=== PATIENT | female | born 1985 | race African-American/Black ===

== ENCOUNTER 2016-11-17 07:16 | Inpatient (IN) ==
[2016-11-17] MEDS: LACTATED RINGERS 1,000 ML IV SCH ×2 (07:48→19:00)
[2016-11-17] MEDS ORDERED: ONDANSETRON 4 MG/2 ML VIAL IV PRN (07:56)
[2016-11-17] MEDS ORDERED: OXYTOCIN/LR 20 UNIT/1,000 ML BAG IV SCH (08:00)
[2016-11-17 08:36] LABS: Basophils % 0.1 % (0.0-0.8); Eosinophils % 0.3 % (0.00-10.9); Hemoglobin 11.4 GM/DL (12.0-16.0); Immature Granulocytes % 0.5 %; Immature Granulocytes Absolute 0.04 #; Lymphocytes # 2.5 10*3/uL (1.4-4.0); Lymphocytes % 28.4 % (21.3-54.2); Mean Corpuscular HGB Conc 35.6 GM/DL (32-36); Mean Corpuscular Hemoglobin 29 PG (27-34); Mean Corpuscular Volume 82.5 FL (87-102); Monocytes # 0.7 10*3/uL (0.11-0.8); Monocytes % 7.8 % (1.7-12.7); Neutrophils # 5.6 10*3/uL (1.4-7.4); Neutrophils % 62.9 % (38.7-73.9); Platelet Count 204 T/CUMM (130-400); Red Blood Count 3.88 MC/CUMM (3.8-5.5); Red Cell Distribution Width 16.3 % (9.3-17.3); White Blood Count 8.8 T/CUMM (4-12)
[2016-11-17 09:07] LABS: Bilirubin,Total 0.5 MG/DL (0.2-1.0); Calcium 8.6 MG/DL (8.5-10.1); Osmolality,Calculated 272.5 MOS/KG (273-304); Total Protein 6.6 G/DL (6.4-8.3)
[2016-11-17] MEDS ORDERED: MEPERIDINE 50 MG/1 ML VIAL IV PRN (09:52)
[2016-11-17] MEDS ORDERED: DINOPROSTONE VAG GEL 10 MG SYRINGE VAG ONE ×2 (10:01→10:06)
--- NOTE | 2016-11-17 13:28 | OB/GYN History & Physical ---
History of Present Illness Chief complaint: For elective induction of labor due to term History of present illness: Ms. Mireles is a 31 year old female who is a 2 para 1 living 1 who presents to the labor department for elective induction of labor due to term . The risk and benefits have thoroughly discussed with patient significant other plan of care has been discussed with Dr. Delgado and all parties are in agreement plan. The patient began her care at the [facility] and she received routine care care. Her course was complicated by an incompetent cervix. The patient did have a cervical cerclage placed. Otherwise she has had an uneventful . The patient had a previous vaginal delivery of a liveborn infant that weighed 6 pounds and 9 ounces. labs: She is O+, RPR is nonreactive, hepatitis B negative, HIV negative, GC chlamydia cultures negative, rubella is immune, Pap smear is within normal limits. GBS culture is negative. And review of systems negative with exception of above. Home Medications Medication Instructions Recorded Confirmed Type Ferrous Sulfate [Iron] 325 mg PO DAILY 11/16/16 11/17/16 History Vit No.130/Iron/Folic 1 each PO DAILY 11/16/16 11/17/16 History [ Vitamins] Allergies Allergy/AdvReac Type Severity Reaction Status Date / Time No Known Allergies Allergy Verified 10/03/16 17:10 12 point system: reviewed and no additional remarkable complaints except as stated Medical,Surgical,& Family Hx - Medical History Cardio: History of: Hypertension (PAST HX. PT NOT TAKING ANY MEDICATIONS.) Psychological: History of: Anxiety Disorders (PAST HX), Depression (?) Neurology: No history of: Seizures HEENT: History of: Eye Problem (GLASSES) Respiratory: History of: Bronchitis (PAST HX 2012) Gastrointestinal: History of: GERD, GI Problems (excessive nausea, some vomiting with pregnacy; lost 10 pounds last few week) Hematology: History of: Anemia (PAST HX), Sickle Cell Disease (SICKLE CELL TRAIT ) Reproductive: History of: Ovarian Cysts (RT OVARIAN CYST), Sexually Transmitted Disorders (Chlamydia) No history of: Ectopic , Complication Other: No history of: Anesthesia Reactions - Surgical History Abdominal Surgeries: Surgical HX of: Colonoscopy, EGD Reproductive Surgeries: Surgical HX of;: Gynecologic Surgery (CERVICAL CERLAGE 2005. 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 General appearance: no acute distress - Antepartum / Post Antepartum Exam Cervix - Dilatation: 2 centimeters Effacement: 60% Station: -2 Rupture: Intact Presentation: Vertex Heart Rate: 130s-140s Breast: bilateral: normal Abdomen obstetrics: Present: bowel sounds normal Vagina: Present: normal moisture Uterus exam: Present: enlarged Anus/Rectum: Present: normal perianal skin - Respiratory Respiratory exam: Present: clear to auscultation bilaterally - Cardiovascular Cardiovascular exam: Present: regular rate and rhythm - GI/Abdominal GI/Abdominal exam: Present: normal bowel sounds, soft - Extremities Exam Extremities exam: Present: normal inspection - Neurological Exam Neurological exam: Present: alert, oriented X3 - Psychiatric Psychiatric exam: Present: normal affect, normal mood - Skin Skin exam: Present: normal color, warm Assessment and Plan (1) Term Status: Acute Assessment and plan: Admit IV fluids cervical cerclage removal Prostin gel per protocol IV Pitocin per protocol of indicated Artificial rupture membranes when appropriate Internal monitors if indicated Anticipate Current Visit: Yes (2) Cervical cerclage suture present in third trimester Status: Acute Assessment and plan: Remove of cerclage Current Visit: Yes Results - Labs CBC & BMP: 11/17/16 08:30 11/17/16 08:30 Quality Measures - VTE Contraindication to Pharmacological VTE Prophylaxis: Continuous Epidural Infusion
[2016-11-17] MEDS ORDERED: diphenhydrAMINE 50 MG/1 ML VIAL IV PRN ×2 (13:35)
[2016-11-17] MEDS ORDERED: ONDANSETRON 4 MG/2 ML VIAL IV ONE (13:35)
[2016-11-17] MEDS ORDERED: hydrOXYzine HCL 25 MG/1 ML VIAL IM PRN (13:35)
[2016-11-17] MEDS ORDERED: FAMOTIDINE 20 MG/2 ML VIAL IV ONE (13:35)
[2016-11-17] MEDS ORDERED: fentaNYL 2 MCG/ROPIV 0.2% EPID 150 ML EPIDURAL SCH (13:35)
[2016-11-17] MEDS ORDERED: CITRIC ACID/SODIUM CITRATE 30 ML UDCUP PO ONE (13:35)
[2016-11-17] MEDS ORDERED: ePHEDrine 50 MG/ML AMP IV PRN (13:35)
[2016-11-17] MEDS ORDERED: PROMETHAZINE 25 MG/1 ML VIAL IM ONE (13:35)
--- NOTE | 2016-11-17 14:15 | Event Note ---
953: Cervical cerclage removed without difficulty. The patient tolerated the procedure well.
[2016-11-17 16:26] LABS: Apearance,Urine CLEAR (Clear); Bacteria,Urine Occasional /HPF (Few); Bilirubin,Urine Negative (Negative); Blood, Urine Negative (Negative); Glucose,Urine (UA) Negative (Negative); Ketones,Urine 5 mg/dL (Negative); Mucus,Urine Occasional /LPF (Occasional); Nitrite,Urine Negative (Negative); Protein,Urine Negative; RBC,Urine 1 /HPF (0-4); Urine Color Yellow (Yellow); Urine Specific Gravity 1.009 (1.001-1.035); Urine Urobilinogen < 2.0 EU/DL (0.2-1.0); WBC,Urine <1 /HPF (0-6)
[2016-11-18] MEDS: LACTATED RINGERS 1,000 ML IV SCH (01:25)
[2016-11-18] MEDS ORDERED: miSOPROStol 200 MCG TABLET ONE (09:32)
[2016-11-18] MEDS ORDERED: BISACODYL 10 MG SUPP RECTAL PRN (10:09)
[2016-11-18] MEDS ORDERED: RHO(D) IMMUNE GLOBULIN 300 MCG SYRINGE IM ONE (10:09)
[2016-11-18] MEDS ORDERED: oxyCODONE/ACETAMINOPHEN 5-325 MG TABLET PO PRN (10:09)
[2016-11-18] MEDS ORDERED: WITCH HAZEL PADS 100/JAR TOP PRN (10:09)
[2016-11-18] MEDS ORDERED: BENZOCAINE 20%/MENTHOL 0.5% SPRAY 56 GM CAN TOP PRN (10:09)
[2016-11-18] MEDS ORDERED: MEASLES/MUMPS/RUBELLA VACCINE 0.5 ML VIAL SUBCUT ONE (10:09)
[2016-11-18] MEDS ORDERED: OXYTOCIN/LR 20 UNIT/1,000 ML BAG IV ONE (10:09)
[2016-11-18] MEDS ORDERED: LANOLIN 50% CREAM 0.3 OZ TUBE TOP PRN (10:09)
[2016-11-18] MEDS ORDERED: HYDROCORTISONE 2.5% RECTAL CREAM 30 GM TUBE TOP PRN (10:09)
[2016-11-18] MEDS ORDERED: DIPH/TET/ACEL PERT BOOSTER VACCINE 0.5 ML VIAL IM ONE (10:09)
[2016-11-18] MEDS ORDERED: ACETAMINOPHEN 325 MG TABLET PO PRN (10:09)
--- NOTE | 2016-11-18 10:09 | Event Note ---
HPI: Ms. Mireles is a 31-year-old female who presented to the labor department for elective induction of labor due to term . The risk and benefits were thoroughly discussed with the patient and significant other, and plan of care was discussed with Dr. Delgado and all parties were in agreement with plan. Stage I: The patient also had a history of a cerclage and that cerclage was removed and then Prostin gel per protocol was inserted. The patient progressed in labor slowly but maintain a CAT 1 tracing. She was eventually started on IV Pitocin per protocol. The patient experienced spontaneous rupture membranes with clear fluid noted. Internal monitors were inserted. She received an epidural for pain control. She had an uneventful course of labor. Stage II: The patient was complete and complained of pressure and desire to push. She pushed for approximately 3 minutes after which time the 's head was delivered. The mouth and nose were suctioned on the perineum. The remainder of the infant was delivered @ 947, a viable male was noted. Apgars were 9 at 1 minute and 9 at 5 minutes. weight was 6 lbs. 7 oz. A cord pH was obtained and sent to the lab. The infant was placed on the mom's abdomen for skin to skin bonding. Stage III: Spontaneous delivery of a Lopez placenta with a three-vessel cord noted. The placenta was further examined appeared to be grossly intact. The vagina cervix was inspected with no tears or lacerations noted. Estimated blood loss was approximately 150 cc. At the time of dictation mother and baby are in stable condition.
[2016-11-18] MEDS ORDERED: ACETAMINOPHEN/CODEINE 300-30 MG TABLET PO PRN (10:12)
[2016-11-18 10:19] LABS: Cord Arterial Blood HCO3 18.4 MMOL/L
[2016-11-18] MEDS: IBUPROFEN 800 MG TABLET PO PRN ×2 (11:25→19:55)
[2016-11-18] MEDS: oxyCODONE/ACETAMINOPHEN 5-325 MG TABLET PO PRN ×2 (11:55→19:55)
--- NOTE | 2016-11-18 11:55 | Anesthesia Post-Op ---
Anesthesia Post OP - Post Ansesthetic Evaluation Patient seen in post op: Yes Resp: within normal limits CV: within normal limits Mental: within normal limits Temp: within normal limits [id number]: within normal limits Nausea and Vomiting: within normal limits Pain: within normal limits
[2016-11-18] MEDS: DOCUSATE SODIUM 100 MG CAPSULE PO SCH (21:59)
[2016-11-19 04:55] LABS: Basophils % 0.2 % (0.0-0.8); Eosinophils # 0.1 10*3/uL (0.0-0.87); Eosinophils % 0.8 % (0.00-10.9); Hematocrit 31.6 VOL% (35.7-47.0); Hemoglobin 10.4 GM/DL (12.0-16.0); Immature Granulocytes % 0.3 %; Immature Granulocytes Absolute 0.06 #; Lymphocytes # 3.6 10*3/uL (1.4-4.0); Lymphocytes % 20.9 % (21.3-54.2); Mean Corpuscular HGB Conc 32.9 GM/DL (32-36); Mean Corpuscular Hemoglobin 28 PG (27-34); Mean Corpuscular Volume 84.7 FL (87-102); Mean Platelet Volume 10.9 FL (9.6-12.0); Monocytes # 1.2 10*3/uL (0.11-0.8); Monocytes % 6.9 % (1.7-12.7); Neutrophils # 12.2 10*3/uL (1.4-7.4); Neutrophils % 70.9 % (38.7-73.9); Platelet Count 161 T/CUMM (130-400); Red Blood Count 3.73 MC/CUMM (3.8-5.5); Red Cell Distribution Width 16.5 % (9.3-17.3); White Blood Count 17.2 T/CUMM (4-12)
[2016-11-19 05:26] LABS: Eosinophils 2 % (0-10); Lymphocytes 15 % (20-55); Platelet Estimate Normal; Segmented Neutrophils 77 % (50-85); Total Cells Counted 100
[2016-11-19 05:27] LABS: Hypochromasia 1+
[2016-11-19] MEDS: DOCUSATE SODIUM 100 MG CAPSULE PO SCH ×2 (09:27→20:17)
--- NOTE | 2016-11-19 10:06 | OB/GYN Progress Note ---
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 Bonding well with . Exam FAMILY LIFE COUNSELOR - Constitutional Vitals: Vital Signs Temp Pulse Resp BP Pulse Ox 11/19/16 07:49 97.1 F L 63 20 110/62 98 11/19/16 05:26 18 11/19/16 04:00 97.4 F L 71 18 121/67 96 11/19/16 00:00 97.2 F L 73 18 112/64 97 11/18/16 20:00 98.7 F 89 18 127/70 97 11/18/16 15:39 97.6 F 82 20 128/72 98 11/18/16 14:40 86 20 129/75 98 11/18/16 13:40 79 20 129/74 98 11/18/16 12:40 80 20 137/76 99 11/18/16 12:10 76 20 143/70 99 11/18/16 11:40 97.7 F 85 20 120/61 98 General appearance: no acute distress - Antepartum / Post Post Exam Breast: bilateral: normal Abdomen obstetrics: Present: bowel sounds normal Vagina: Present: normal moisture, discharge (Light lochia rubra) Uterus exam: Present: enlarged Anus/Rectum: Present: normal perianal skin - Respiratory Respiratory exam: Present: clear to auscultation bilaterally - Cardiovascular Cardiovascular exam: Present: regular rate and rhythm - GI/Abdominal GI/Abdominal exam: Present: normal bowel sounds, soft - Extremities Exam Extremities exam: Present: normal inspection - Back Exam Back exam: Present: normal inspection - Neurological Exam Neurological exam: Present: alert, oriented X3 - Psychiatric Psychiatric exam: Present: normal affect, normal mood - Skin Skin exam: Present: normal color, warm Results - Labs CBC & BMP: 11/19/16 04:43 11/17/16 08:30
[2016-11-19] MEDS: IBUPROFEN 800 MG TABLET PO PRN (11:33)
[2016-11-19] MEDS: oxyCODONE/ACETAMINOPHEN 5-325 MG TABLET PO PRN (11:34)
[2016-11-20] MEDS: oxyCODONE/ACETAMINOPHEN 5-325 MG TABLET PO PRN ×2 (02:03→07:40)
[2016-11-20] MEDS: IBUPROFEN 800 MG TABLET PO PRN (07:40)
[2016-11-20 08:47] VITALS: BP 116/77
[2016-11-20] MEDS: DOCUSATE SODIUM 100 MG CAPSULE PO SCH ×2 (09:00→11:18)
--- NOTE | 2017-01-24 08:17 | Discharge Summary ---
DATE OF ADMISSION: 11/17/2016 DATE OF DISCHARGE: 11/20/2016 She was admitted for elective induction of labor. She progressed in labor, delivered a viable male . Apgars were 9 at 1 minute and 9 at 5 minutes. Placenta was delivered without any complications. Blood loss was minimal. She remained in the hospital for two days tolerated this hospitalization without any complications. instructions were thoroughly given and she was in full agreement. Nursery discharged the infant as well and mother and were stable at the time of discharge. GHADA
== END 2016-11-20 12:45 | disposition home or self-care (01) | DRG 560 ==
LOC: N.LD 07:16 → N.OB 11-18 11:08
PROVIDERS: ADMIT Obstetrics & Gynecology; ATTEND Obstetrics & Gynecology

== ENCOUNTER 2018-10-24 09:48 | Inpatient (IN) ==
[2018-10-24] MEDS ORDERED: CITRIC ACID/SODIUM CITRATE 30 ML UDCUP PO ONE (10:00)
[2018-10-24] MEDS ORDERED: FAMOTIDINE 20 MG/2 ML VIAL IV ONE (10:00)
[2018-10-24] MEDS ORDERED: ceFAZolin 3,000 MG in SYRINGE 1 EACH IV ONE (10:00)
[2018-10-24] MEDS ORDERED: DEXAMETHASONE 4 MG/1 ML VIAL ONE (10:03)
[2018-10-24] MEDS ORDERED: OXYTOCIN 10 UNIT/ML VIAL IM ONE (10:03)
[2018-10-24] MEDS ORDERED: BUPIVACAINE 0.5% 50 ML VIAL ONE (10:03)
[2018-10-24] MEDS ORDERED: OXYTOCIN/LR 30 UNIT/1,000 ML BAG IV ONE (10:04)
[2018-10-24 10:25] LABS: Basophils % 0.2 % (0.0-0.8); Eosinophils # 0.1 10*3/uL (0.0-0.87); Eosinophils % 0.9 % (0.00-10.9); Hematocrit 34.4 VOL% (35.7-47.0); Hemoglobin 10.9 GM/DL (12.0-16.0); Immature Granulocytes % 0.4 %; Immature Granulocytes Absolute 0.03 #; Lymphocytes # 2.3 10*3/uL (1.4-4.0); Lymphocytes % 28.4 % (21.3-54.2); Mean Corpuscular HGB Conc 31.7 GM/DL (32-36); Mean Corpuscular Volume 85.1 FL (87-102); Mean Platelet Volume 11.6 FL (9.6-12.0); Monocytes % 7.2 % (1.7-12.7); Neutrophils % 62.9 % (38.7-73.9); Platelet Count 173 T/CUMM (130-400); Red Blood Count 4.04 MC/CUMM (3.8-5.5); Red Cell Distribution Width 15.7 % (9.3-17.3); White Blood Count 8.2 T/CUMM (4-12)
[2018-10-24 10:44] LABS: Bilirubin,Total 0.4 MG/DL (0.2-1.0); Calcium 8.7 MG/DL (8.5-10.1); Osmolality,Calculated 278.3 MOS/KG (273-304); Total Protein 7.3 G/DL (6.4-8.3)
[2018-10-24 11:08] LABS: Cord Arterial Blood HCO3 19.7 MMOL/L
[2018-10-24 11:09] LABS: Cord Venous Blood HCO3 22.2 MMOL/L; Cord Venous Blood PCO2 44.1 MMHG; Cord Venous Blood PO2 42.4 MMHG
[2018-10-24 11:15] LABS: Cord Arterial Blood HCO3 20.3 MMOL/L
[2018-10-24 11:16] LABS: Cord Venous Blood HCO3 21.3 MMOL/L; Cord Venous Blood PCO2 41.6 MMHG; Cord Venous Blood PO2 42.8 MMHG
[2018-10-24] MEDS ORDERED: LACTATED RINGERS 1,000 ML IV ONE (11:53)
[2018-10-24] MEDS ORDERED: ONDANSETRON 4 MG/2 ML VIAL IV PRN (11:53)
[2018-10-24] MEDS ORDERED: fentaNYL 100 MCG/2 ML VIAL ONE (11:53)
[2018-10-24] MEDS ORDERED: MIDAZOLAM 2 MG/2 ML VIAL ONE (11:53)
[2018-10-24] MEDS ORDERED: PROPOFOL 200 MG/20 ML VIAL IV ONE (11:54)
[2018-10-24] MEDS ORDERED: SUCCINYLCHOLINE 200 MG/10 ML VIAL ONE (11:54)
[2018-10-24] MEDS ORDERED: ROCURONIUM 100 MG/10 ML VIAL IV ONE (11:54)
[2018-10-24] MEDS ORDERED: SEVOFLURANE 1 UNIT/15 MINUTE INH ONE (11:54)
[2018-10-24] MEDS ORDERED: LACTATED RINGERS 1,000 ML IV SCH (12:00)
[2018-10-24] MEDS ORDERED: KETOROLAC 30 MG/1 ML VIAL IV PRN (12:01)
[2018-10-24] MEDS ORDERED: ACETAMINOPHEN 500 MG TABLET PO PRN (12:02)
[2018-10-24] MEDS ORDERED: HYDROmorphone 2 MG/1 ML VIAL IV PRN (12:03)
[2018-10-24 12:31] LABS: Apearance,Urine CLEAR (Clear); Bilirubin,Urine Negative (Negative); Blood, Urine Negative (Negative); Glucose,Urine (UA) Negative (Negative); Ketones,Urine Negative (Negative); Nitrite,Urine Negative (Negative); Protein,Urine Negative; RBC,Urine 1 /HPF (0-4); Squamous Epithelial Cell,Urine Occasional /HPF (0-10); Urine Color Straw (Yellow); Urine Specific Gravity 1.003 (1.001-1.035); Urine Urobilinogen < 2.0 EU/DL (0.2-1.0)
[2018-10-24] MEDS ORDERED: ACETAMINOPHEN 325 MG TABLET PO PRN (13:18)
[2018-10-24] MEDS ORDERED: RHO(D) IMMUNE GLOBULIN 300 MCG SYRINGE IM ONE (13:18)
[2018-10-24] MEDS ORDERED: OXYTOCIN/LR 20 UNIT/1,000 ML BAG IV ONE (13:18)
[2018-10-24 18:11] LABS: Basophils % 0.1 % (0.0-0.8); Eosinophils # 0.5 10*3/uL (0.0-0.87); Eosinophils % 2.7 % (0.00-10.9); Hematocrit 37.5 VOL% (35.7-47.0); Hemoglobin 12.4 GM/DL (12.0-16.0); Immature Granulocytes % 0.4 %; Immature Granulocytes Absolute 0.06 #; Lymphocytes # 1.5 10*3/uL (1.4-4.0); Lymphocytes % 9.2 % (21.3-54.2); Mean Corpuscular HGB Conc 33.1 GM/DL (32-36); Mean Corpuscular Volume 82.6 FL (87-102); Mean Platelet Volume 13.1 FL (9.6-12.0); NRBC # 0.03 10*3/uL; Neutrophils % 85.6 % (38.7-73.9); Platelet Count 58 T/CUMM (130-400); Red Blood Count 4.54 MC/CUMM (3.8-5.5); Red Cell Distribution Width 15.4 % (9.3-17.3); White Blood Count 16.8 T/CUMM (4-12)
[2018-10-24] MEDS: ceFAZolin 1,000 MG in SYRINGE 1 EACH IV SCH (18:43)
[2018-10-24 19:15] LABS: Polychromasia Slight
[2018-10-24 19:16] LABS: Platelet Estimate Decreased
[2018-10-25] MEDS: ceFAZolin 1,000 MG in SYRINGE 1 EACH IV SCH (02:17)
[2018-10-25 04:28] LABS: Basophils % 0.1 % (0.0-0.8); Eosinophils % 0.1 % (0.00-10.9); Hemoglobin 9.2 GM/DL (12.0-16.0); Immature Granulocytes % 0.3 %; Immature Granulocytes Absolute 0.04 #; Lymphocytes # 2.9 10*3/uL (1.4-4.0); Lymphocytes % 21.1 % (21.3-54.2); Mean Corpuscular HGB Conc 32.9 GM/DL (32-36); Mean Corpuscular Volume 83.3 FL (87-102); Mean Platelet Volume 11.5 FL (9.6-12.0); Monocytes % 7.5 % (1.7-12.7); Neutrophils % 70.9 % (38.7-73.9); Platelet Count 170 T/CUMM (130-400); Red Blood Count 3.36 MC/CUMM (3.8-5.5); Red Cell Distribution Width 15.7 % (9.3-17.3); White Blood Count 13.8 T/CUMM (4-12)
[2018-10-25] MEDS: DOCUSATE SODIUM 100 MG CAPSULE PO SCH ×3 (04:52→21:57)
[2018-10-25] MEDS: MULTIVITAMIN (PRENATAL) TABLET PO SCH (09:52)
[2018-10-25] MEDS: SIMETHICONE CHEW 80 MG TABLET PO PRN ×2 (09:52→19:36)
[2018-10-25] MEDS: METOCLOPRAMIDE 10 MG TABLET PO SCH ×2 (09:52→16:54)
[2018-10-25] MEDS: MAGNESIUM HYDROXIDE SUSP 30 ML UDCUP PO PRN ×2 (09:53→21:57)
[2018-10-25] MEDS: IBUPROFEN 800 MG TABLET PO PRN (19:34)
[2018-10-26] MEDS: METOCLOPRAMIDE 10 MG TABLET PO SCH ×4 (00:19→23:55)
[2018-10-26] MEDS: MULTIVITAMIN (PRENATAL) TABLET PO SCH (08:40)
[2018-10-26] MEDS: DOCUSATE SODIUM 100 MG CAPSULE PO SCH ×2 (08:40→20:53)
[2018-10-26] MEDS: MAGNESIUM HYDROXIDE SUSP 30 ML UDCUP PO PRN (08:45)
[2018-10-26] MEDS ORDERED: MAGNESIUM CITRATE 300 ML BOTTLE PO PRN (18:11)
[2018-10-27] MEDS: IBUPROFEN 800 MG TABLET PO PRN (06:19)
[2018-10-27 08:38] VITALS: BP 129/69
[2018-10-27] MEDS: DOCUSATE SODIUM 100 MG CAPSULE PO SCH (09:06)
[2018-10-27] MEDS: MAGNESIUM HYDROXIDE SUSP 30 ML UDCUP PO PRN (09:06)
[2018-10-27] MEDS: METOCLOPRAMIDE 10 MG TABLET PO SCH (09:06)
[2018-10-27] MEDS: MULTIVITAMIN (PRENATAL) TABLET PO SCH (09:18)
== END 2018-10-27 14:30 | disposition home or self-care (01) | DRG 540 ==
LOC: N.LDOUT 09:48 → N.LD 09:50 → N.OB 14:50
PROVIDERS: ADMIT Obstetrics & Gynecology; ATTEND Obstetrics & Gynecology
PROC: LDCSECT (ICD-10-PCS; 2018-10-24 10:30)

== ENCOUNTER 2020-12-03 15:41 | Observation (INO) ==
[2020-12-03] MEDS ORDERED: PROMETHAZINE 25 MG/1 ML VIAL IM PRN (16:33)
[2020-12-03] MEDS ORDERED: MAGNESIUM SULF RIDER 4 GM/100 ML PREMIX IV PRN (16:33)
[2020-12-03] MEDS ORDERED: ACETAMINOPHEN 325 MG TABLET PO PRN (16:33)
[2020-12-03] MEDS ORDERED: ONDANSETRON 4 MG/2 ML VIAL IV PRN (16:33)
[2020-12-03] MEDS ORDERED: POTASSIUM CHLORIDE RIDER 10 MEQ/100 ML PREMIX IV PRN (16:33)
[2020-12-03] MEDS ORDERED: MAGNESIUM SULF RIDER 2 GM/50 ML PREMIX IV PRN (16:33)
[2020-12-03] MEDS ORDERED: hydrALAZINE 20 MG/1 ML VIAL IV PRN (16:37)
[2020-12-03] MEDS ORDERED: NITROGLYCERIN SL 0.4 MG TABLET SL PRN (16:37)
[2020-12-03] MEDS: PANTOPRAZOLE 40 MG TABLET PO SCH (17:01)
[2020-12-03 17:07] LABS: Basophils % 0.3 % (0.0-0.8); Eosinophils # 0.2 10*3/uL (0.0-0.87); Hematocrit 37.2 VOL% (35.7-47.0); Hemoglobin 11.7 GM/DL (12.0-16.0); Immature Granulocytes % 0.4 %; Immature Granulocytes Absolute 0.03 #; Lymphocytes # 3.2 10*3/uL (1.4-4.0); Lymphocytes % 42.2 % (21.3-54.2); Mean Corpuscular HGB Conc 31.5 GM/DL (32-36); Mean Corpuscular Volume 84.9 FL (87-102); Mean Platelet Volume 9.9 FL (9.6-12.0); Monocytes % 6.8 % (1.7-12.7); Neutrophils % 48.3 % (38.7-73.9); Platelet Count 259 T/CUMM (130-400); Red Blood Count 4.38 MC/CUMM (3.8-5.5); Red Cell Distribution Width 13.9 % (9.3-17.3); White Blood Count 7.5 T/CUMM (4-12)
[2020-12-03 17:16] LABS: Albumin 3.8 G/DL (3.4-5.0); Bilirubin,Total 0.6 MG/DL (0.2-1.0); Calcium 9.2 MG/DL (8.5-10.1); Osmolality,Calculated 271.7 MOS/KG (273-304); Total Protein 8.3 G/DL (6.4-8.2)
[2020-12-03 19:43] LABS: Bilirubin,Urine Negative (Negative); Blood, Urine Negative (Negative); Glucose,Urine (UA) Negative (Negative); Hyaline Casts,Urine 1 /LPF (0-3); Ketones,Urine Negative (Negative); Mucus,Urine Occasional /LPF (Occasional); Nitrite,Urine Negative (Negative); Protein,Urine Negative; RBC,Urine <1 /HPF (0-4); Squamous Epithelial Cell,Urine Occasional /HPF (0-10); Urine Appearance CLEAR (Clear); Urine Color Yellow (Yellow); Urine Specific Gravity 1.011 (1.001-1.035); Urine Urobilinogen < 2.0 EU/DL (0.2-1.0)
[2020-12-03] MEDS ORDERED: ESCITALOPRAM 10 MG TABLET PO SCH (21:00)
[2020-12-03] MEDS ORDERED: ENOXAPARIN 40 MG/0.4 ML SYRINGE SUBCUT SCH (21:00)
[2020-12-03] MEDS: DOCUSATE SODIUM 100 MG CAPSULE PO SCH (21:18)
[2020-12-03] MEDS: MORPHINE 4 MG/1 ML VIAL IV PRN (21:19)
[2020-12-04 05:19] LABS: Basophils % 0.1 % (0.0-0.8); Eosinophils # 0.2 10*3/uL (0.0-0.87); Hematocrit 34.6 VOL% (35.7-47.0); Hemoglobin 11.1 GM/DL (12.0-16.0); Immature Granulocytes % 0.1 %; Immature Granulocytes Absolute 0.01 #; Lymphocytes # 3.5 10*3/uL (1.4-4.0); Lymphocytes % 46.5 % (21.3-54.2); Mean Corpuscular HGB Conc 32.1 GM/DL (32-36); Mean Platelet Volume 10.6 FL (9.6-12.0); Neutrophils % 43.3 % (38.7-73.9); Platelet Count 255 T/CUMM (130-400); Red Blood Count 4.07 MC/CUMM (3.8-5.5); Red Cell Distribution Width 13.9 % (9.3-17.3); White Blood Count 7.5 T/CUMM (4-12)
[2020-12-04 05:45] LABS: Atypical Lymphocytes Few; Eosinophils 1 % (0-10); Lymphocytes 51 % (20-55); Platelet Estimate Adequate; Segmented Neutrophils 43 % (50-85); Total Cells Counted 100
[2020-12-04 05:46] LABS: Hypochromasia 1+; Microcytosis 1+
[2020-12-04 06:02] LABS: Albumin 3.3 G/DL (3.4-5.0); Bilirubin,Total 0.4 MG/DL (0.2-1.0); Calcium 8.5 MG/DL (8.5-10.1); Osmolality,Calculated 273.7 MOS/KG (273-304); Potassium 3.7 MMOL/L (3.5-5.1); Total Protein 7.4 G/DL (6.4-8.2)
[2020-12-04] MEDS: PANTOPRAZOLE 40 MG TABLET PO SCH (08:56)
[2020-12-04] MEDS: DOCUSATE SODIUM 100 MG CAPSULE PO SCH (08:57)
[2020-12-04] MEDS ORDERED: LOSARTAN/HCTZ 50-12.5 MG TABLET PO SCH (09:00)
[2020-12-04] MEDS: MORPHINE 4 MG/1 ML VIAL IV PRN (09:44)
[2020-12-04 12:44] VITALS: BP 123/65
== END 2020-12-04 12:37 | disposition home or self-care (01) ==
LOC: N.5E
PROVIDERS: ADMIT Family Medicine; ATTEND Family Medicine